=== PATIENT | male | born 1965 | race Caucasian/White ===

== ENCOUNTER 2020-12-14 13:50 | Emergency (ER) | payer SELFPAY ==
--- NOTE | ~2020-12-14 | CT_ITS ---
EXAMINATION: CTA chest PE abdomen pel EXAM DATE: 12/14/2020 16:16 INDICATION: Leg pain. Shortness of breath. Pulmonary embolism. TECHNIQUE: Spiral CTA of the chest (pulmonary arteries) was performed with 100 cc Omnipaque 350 intr avenous contrast injection. Images were acquired during the pulmonary arterial phase. Coronal maxi mum intensity projection 3D-reconstructions were created by the technologist on dedicated workstation . Axial, coronal and sagittal reformatted images were reviewed. Spiral CT of the abdomen and pelvis was then performed with the same intravenous contrast injection. Axial, coronal and sagittal reform atted images were reviewed. The dose-length product (DLP) for this examination was 577.18 mGy-cm. T he exposure was tailored according to patient size (auto mA exposure control), and iterative reconst ruction (ASIR) was used as additional dose reduction technique. There is no prior study for comparis on. FINDINGS: CHEST: Several right lower lobe segmental pulmonary emboli, low clot burden. No evidence of right hea rt strain. There is ill-defined left hilar malignancy extending into the lingula and left upper lobe, primary lung cancer. Difficult to measure this but up to about 7 cm, and with multiple severely enla rged left hilar, mediastinal and subcarinal metastatic nodes causing mild narrowing of the left main pulmonary artery. There is mass effect compressing the left upper lobe superior segmental bronchus. M ild right hilar lymphadenopathy. There is mild to moderate emphysema. No thoracic aortic dissection. There are no pleural or pericardial effusions. Tracheobronchial tree is patent. There is no pne umothorax. Heart normal in size. No evidence of coronary arterial calcification. ABDOMEN PELVIS: Liver and right renal cysts. Low-density right adrenal gland 2.3 cm lesion likely ad enoma. Gallbladder calcification probably cholelithiasis although nondependent. Portal and splenic veins are patent. Kidneys enhance symmetrically. There is no hydronephrosis. Mild prostatomegaly. Some diffuse bladder wall thickening, could indicate chronic cystitis. Acute cystitis not excludabl e. There is no retroperitoneal or pelvic lymphadenopathy. There are no findings to suggest appendicitis. The stomach and small bowel are unremarkable. There is expected amount of colonic stool. No free intraperitoneal gas. Ill-defined osteolytic lesion i n the right iliac crest measuring about 2 cm with some cortical destruction anteriorly, metastatic di sease. Additional low density 1.5 cm region in the left pubic symphysis without cortical destruction. Suspect early osteolytic disease of the right hip. Probable [id number] right 7th rib osteolytic lesion anterolaterally. Sclerotic 7 mm focus in T9, probably bone island. IMPRESSION: 1. Several right lower lobe segmental pulmonary emboli, low clot burden. 2. Infiltrative left hilar malignancy with extensive left hilar, mediastinal lymphadenopathy. Mild r ight hilar lymphadenopathy. 3. 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 I discussed left hilar malignancy, metastatic disease, pulmonary emboli with SAHRA Clinton t 12/14/2020 16:43 CDT. Reviewed, dictated and finalized at location B. IMPRESSION: 1. Several right lower lobe segmental pulmonary emboli, low clot burden. 2. Infiltrative left hilar malignancy with extensive left hilar, mediastinal l ymphadenopathy. Mild right hilar lymphadenopathy. 3. 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 I discussed left hilar malignancy, metastatic disease, pulmonary emboli with Rola Muir PA-C at 12/14/2020 16:43 CDT.
--- NOTE | ~2020-12-14 | US_ITS ---
EXAMINATION: US venous doppler [facility] DATE: 12/14/2020 14:49 INDICATION: Bilateral lower limb pain TECHNIQUE: Grayscale ultrasound images without and with compression and Doppler ultrasound images of the bilateral lower extremity veins were obtained. COMPARISON: None. FINDINGS: Noncompressible deep venous thrombosis in the right gastrocnemius and soleus veins and superficial ve nous thrombosis in the right lesser saphenous vein. The visualized portions of right common femoral v ein, profunda (deep) femoral vein, femoral vein, popliteal vein, posterior tibial veins, peroneal vei ns and greater saphenous vein outflow are patent. Noncompressible deep venous thrombosis in the left gastrocnemius and soleus veins. The visualized por tions of left common femoral vein, profunda femoral vein, femoral vein, popliteal vein, posterior tib ial veins, peroneal veins and greater saphenous vein outflow are patent. IMPRESSION: 1. Bilateral [id number] deep venous thrombosis at both the left and right gastrocnemius and sole us veins and superficial venous thrombosis at the right lesser saphenous vein. Reviewed, dictated and finalized at location A. IMPRESSION: 1. Bilateral [id number] deep venous thrombosis at both the left and right gastrocnemius and soleus veins and superficial venous thrombosis at the right l savita saphenous vein.
[2020-12-14 14:00] VITALS: BP 118/80; PULSE 98; RESP 20; TEMP 36.7; O2SAT 99
[2020-12-14 14:51] VITALS: BP 118/80; PULSE 98; RESP 18; TEMP 36.7; O2SAT 99
[2020-12-14 15:40] LABS: INR 1.2; Prothrombin Time 15.5 Seconds (11.1-14.7)
[2020-12-14 15:41] LABS: Partial Thromboplastin Time 31.6 SECONDS (22.3-36.8)
--- NOTE | 2020-12-14 16:04 | PC.NURSE ---
Returned from radiology and immediately walks outside. Pt went outside to get warm, refuses warm blanket when offered.
[2020-12-14 16:48] VITALS: BP 119/73; PULSE 65; RESP 16; O2SAT 99
--- NOTE | 2020-12-14 16:58 | ED.GENADULT ---
HPI - General Adult General Chief complaint: Extremity Problem,Nontraumatic Stated complaint: Leg pain Time Seen by Provider: 12/14/20 14:40 Source: patient and RN notes reviewed Mode of arrival: ambulatory Limitations: no limitations History of Present Illness HPI narrative: Patient is a 55-year-old male who presents with pain in the bilateral calves that has been going on now for the last week patient notes aching pain worse with activity and palpation patient also notes that he in the last months has lost up to 30 pounds of weight patient denies any chest pain shortness of breath lightheadedness dizziness patient has no primary care doctor nor is he ever seen a primary care doctor patient has been a smoker most of his life patient takes no medications and on arrival does not appear distressed patient lives at home with family Related Data Home Medications Medication Instructions Recorded Confirmed No Home Medications 12/14/20 12/14/20 Allergies Allergy/AdvReac Type Severity Reaction Status Date / Time No Known Allergies Allergy Verified 12/14/20 14:57 Review of Systems Review of Systems: All systems reviewed & are unremarkable except as noted in HPI and below PMFSH Social History Social History (Updated 12/14/20 @ 17:00 by Jeremy Muir PA-C) Smoking status: Current every day smoker Exam Narrative: Exam Narrative: GENERAL: Well-appearing, well-nourished, and in no acute distress. HEAD: Normocephalic, atraumatic. EYES: PERRLA and EOMI. ENT: Nares clear, no rhinorrhea or epistaxis. Mucous membranes moist. CHEST: Clear to auscultation. No respiratory distress. No wheezes rales or rhonchi HEART: Regular rate and rhythm. No murmur heard. Normal peripheral pulses. ABDOMEN: Soft, nontender, nondistended EXTREMITIES: Normal range of motion. No edema. Tenderness of the bilateral calves no swelling or deformity SKIN: Warm, dry, no rash. NEURO: No focal deficits. Alert and oriented x3. Cranial nerves II through XII grossly intact. Neurovascularly intact. Capillary refill less than 2 seconds PSYCH: Normal mood and affect. Course Course Emergency Course: Patient was evaluated in the emergency department for bilateral calf pain found to have bilateral DVTs patient also found to have left-sided lung cancer and pulmonary embolism patient was advised to come into the hospital but notes that he will follow up on [place] with the provided oncology referral he is aware of the discussion with oncology patient was given anticoagulation in the emergency department will be sent home with anticoagulation. Patient agrees with this treatment plan ABCs and vital signs intact and stable. Patient will sign out AMA. Reevaluation(s) Reevaluation #1: Patient was made aware of case findings treatment plan and diagnosis advised to stay in hospital given the pulmonary embolus blood clots and need for further evaluation of his new cancer finding patient notes that he is not going to stay in the hospital that he will go home and spend Father's Day with his family patient is aware of the risks associated with this and notes that he will sign out AMA patient notes that he will follow up with oncology and the provided primary care referrals on Friday Date: 12/14/20 Consultations Consultation #1: Discussed case with the oncologist Dr. Stewart recommended that the patient be admitted however he is aware that the patient is refusing to stay in the hospital and recommends that he be anticoagulated with either Eliquis or Xarelto and follow-up in clinic Date: 12/14/20 Time: 17:06 Vital Signs Vital signs: Vital Signs Temperature 98.1 F 12/14/20 14:51 Pulse Rate 98 12/14/20 14:51 Respiratory Rate 18 12/14/20 14:51 Blood Pressure 118/80 12/14/20 14:51 Pulse Oximetry 99 12/14/20 14:51 Temperature 98.1 F 12/14/20 14:51 Pulse Rate 65 12/14/20 16:48 Respiratory Rate 16 12/14/20 16:48 Blood Pressure 119/73 12/14/20 16:4
[2020-12-14] MEDS: APIXABAN 5 MG TABLET 10 MG PO (17:31)
== END 2020-12-14 17:34 | disposition left against medical advice (07) ==
PROVIDERS: Emergency Medicine Emergency Medical Services; Emergency Provider Emergency Medicine
DX: I26.99 Other pulmonary embolism without acute cor pulmonale (principal); I82.409 Acute embolism and thrombosis of unspecified deep veins of unspecified lower extremity; C34.92 Malignant neoplasm of unspecified part of left bronchus or lung; C79.51 Secondary malignant neoplasm of bone; F17.200 Nicotine dependence, unspecified, uncomplicated
CPT/HCPCS: 36415; 71275; 74177; 80048; 82550; 85025; 85610; 85730; 93970; 99284; A9270; Q9967

== ENCOUNTER 2021-01-15 09:49 | Emergency (ER) | payer MEDICAID, SELFPAY ==
--- NOTE | ~2021-01-15 | CT_ITS ---
EXAMINATION: CT brain wo con INDICATION: Altered mental status COMPARISON: None TECHNIQUE: Standard unenhanced head CT. The dose-length product (DLP) was 605.33 mGy-cm. The mA was a djusted according to patient size. Iterative reconstruction technique was employed. FINDINGS: There is a 4 mm mass in the left frontal lobe with surrounding vasogenic edema. There is an area of edema right frontal lobe without definite mass visualized. There are old infarcts of the rig ht cerebellum. The ventricles are normal. There is no abnormal mass effect or midline shift. The basa l cisterns are patent. The orbits are normal. There is mild mucosal thickening of the paranasal sinus es. IMPRESSION: 1. 4 mm mass in the left frontal lobe with surrounding vasogenic edema consistent with metastatic dis ease. Low-attenuation in the right frontal lobe without discrete mass identified could reflect occult metastasis. 2. 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 These findings were discussed with Dr. Sabas Foy MD in the Emergency Department at [email or web address] on 01/15/2021. Reviewed, dictated and finalized at location B. IMPRESSION: 1. 4 mm mass in the left frontal lobe with surrounding vasogenic edema consiste nt with metastatic disease. Low-attenuation in the right frontal lobe without d iscrete mass identified could reflect occult metastasis. 2. 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 These findings were discussed with Dr. Sabas Foy MD in the Emergency Department at 1053 hours on 01/15/2021.
--- NOTE | ~2021-01-15 | XR_ITS ---
EXAMINATION: XR chest 1V INDICATION: Altered mental status TECHNIQUE: AP view of the chest is obtained. COMPARISON: CT, 12/14/2020 FINDINGS: Again seen are left perihilar, mid lung zone and paramediastinal opacities, consistent with malignancy. No new opacities are identified. The heart size is normal. The visualized osseous struct ures are unremarkable. IMPRESSION: 1. Stable left perihilar and left upper lobe opacities, consistent with malignancy. No significant in terval change. Reviewed, dictated and finalized at location B. IMPRESSION: 1. Stable left perihilar and left upper lobe opacities, consistent with maligna ncy. No significant interval change.
--- NOTE | 2021-01-15 09:48 | ED.AMS ---
HPI - Altered Mental Status General Chief Complaint: Altered Mental Status Stated Complaint: AMS History of Present Illness HPI narrative: 55 yo male brought in by EMS from home for altered mental status. He reportedly had a recent diagnosis of cancer, possibly lung. Not currently on treatment. Found wandering in the yard this morning confused and dressed inappropriately for the weather. A&O x0 per EMS. He is apparently of normal mental status at baseline and this is new since this morning. History is severely limited by mental status. On further investigation he recently had imaging concerning for primary lung cancer. He has had one visit with oncology. There has not been any confirmatory biopsy or treatment. He does not have any other known history. Related Data Home Medications Medication Instructions Recorded Confirmed hydrocodone-acetaminophen 01/15/21 01/15/21 Allergies Allergy/AdvReac Type Severity Reaction Status Date / Time No Known Allergies Allergy Verified 01/15/21 10:30 Review of Systems Review of Systems: ROS unobtainable: Yes unobtainable due to mental status PMFSH Social History Social History Smoking status: Current every day smoker Gender identity (if verbalized by the patient): Male Exam Const: General: ill appearing Nutritional Appearance: thin Other: Alert .Oriented x0 HENMT: Head: normal to inspection, no contusions and no lacerations Ears: external ears abnormal Face and sinus: normal facial exam Mouth: Yes dry mucous membranes Eyes: Pupils: Equal, round and reactive pupils present EOM: EOMs intact bilaterally Neck: Neck: normal visual inspection Resp: Effort & Inspection: normal respiratory effort Auscultation: clear to auscultation bilaterally Cardio: Rate: regular rate Rhythm: regular rhythm GI: GI Palp: Yes Soft to palpation and No Tenderness to palpation present (GI) Skin: General skin exam: normal color Wounds: no wounds Neuro: General: moves all extremities, no focal motor deficits and CN's II-XI intact bilaterally Speech: normal speech Extrem: General: normal to inspection Course Vital Signs Vital signs: Vital Signs Temperature 37.0 C 01/15/21 09:49 Pulse Rate 90 01/15/21 09:49 Respiratory Rate 18 01/15/21 09:49 Blood Pressure 115/76 01/15/21 09:49 Pulse Oximetry 98 01/15/21 09:49 Temperature 37.0 C 01/15/21 09:49 Pulse Rate 57 L 01/15/21 12:52 Respiratory Rate 18 01/15/21 12:52 Blood Pressure 120/55 L 01/15/21 12:52 Pulse Oximetry 97 01/15/21 12:52 MDM - Altered Mental Status MDM Narrative Medical decision making narrative: Case discussed with Dr. Stewart. He has not seen the pateint personally. He recommends transfer to a center capable of inpatient radiation therapy. Dr[facility] Sandhu at [facility] will accept the patient for transfer. Given the bed situation and need for prompt transfer he would like him transferred to the ED. Differential Diagnosis Differential diagnosis: Likely delirium, hypoglycemia, subarachnoid hemorrhage, sepsis and other (CVA, brain mass) Medical Records Attestation: I reviewed the patient's medical records. Lab Data Attestation: I reviewed the patient's lab results. Result diagrams: 01/15/21 10:16 01/15/21 10:16 Labs: Lab Results 01/15/21 01/15/21 01/15/21 Range/Units 10:16 10:16 10:16 WBC 7.0 (4.5-10.0) K/mm3 RBC 3.50 L (4.6-6.20) M/mm3 Hgb 9.8 L (14.0-18.0) g/dL Hct 31.1 L (42.0-52.0) % MCV 88.9 (80-100) fl MCH 28.0 (26-34) pg MCHC 31.5 L (32-36) g/dl RDW 13.0 (11.5-14.5) % Plt Count 212 (150-375) k/mm3 MPV 8.8 (7.4-10.4) fl Immature Gran % (Auto) 0.3 (0-0.5) % Neut % (Auto) 79.9 H (45.5-73.1) % Lymph % (Auto) 10.6 L (18.3-44.2) % [place] % (Auto) 8.5 (2.6-8.5) % Eos % (Auto) 0.4 (0-4.4) % Baso % (Auto) 0.3 (0.2-1.2) % Lymp
[2021-01-15 09:49] VITALS: BP 115/76; PULSE 90; RESP 18; TEMP 37; O2SAT 98
--- NOTE | 2021-01-15 10:00 | ECG_ITS ---
Measurements Intervals [place] Rate: 89 P: 68 [place]: 130 QRS: 16 QRSD: 104 T: 46 QT: 352 QTc: 428 Interpretive Statements SINUS RHYTHM ST ELEVATION IN ANTEROLATERAL LEADS- PROBABLY EARLY REPOLARIZATION ABNORMALITY BASELINE ARTIFACT- II, III, AVF, V1, V4-V6 BORDERLINE ECG Electronically Signed On 01-15-2021 11:39:46 CDT by Richard Jorge D.O.
[2021-01-15 10:23] LABS: Alveolar/Arterial O2 Gradient 24.6 mmHg; Device ROOM AIR; Fractional Inspired Oxygen 21 %; HCO3 ABG 29.1 mEq/l (22.0-26.0); Modified Allen's Test Pass; Oxygen Content ABG 14.5 %vol (16.0-22.0); Oxygen Saturation ABG 95.9 % (95.0-100.0); Oxyhemoglobin 93.4 % THb (90.0-100.0); PCO2 ABG 41.3 mmHg (35.0-45.0); PO2 ABG 75.7 mmHg (80.0-100.0); Site Drawn RIGHT RADIAL; pH ABG 7.466 (7.350-7.450)
[2021-01-15] MEDS: SODIUM CHLORIDE 0.9% IV 1,000 ML 999 ML IV CONT (10:28)
[2021-01-15 10:29] LABS: Basophils Percent Auto 0.3 % (0.2-1.2); Eosinophils Percent Auto 0.4 % (0-4.4); Hematocrit 31.1 % (42.0-52.0); Hemoglobin 9.8 g/dL (14.0-18.0); Immature Granulocyte Absolute 0.02 K/mm3 (0.00-0.031); Immature Granulocyte Percent A 0.3 % (0-0.5); Lymphocytes Absolute Auto 0.74 K/mm3 (0.9-3.2); Lymphocytes Percent Auto 10.6 % (18.3-44.2); Mean Corpuscular HGB Conc 31.5 g/dl (32-36); Mean Corpuscular Volume 88.9 fl (80-100); Mean Platelet Volume 8.8 fl (7.4-10.4); Monocytes Absolute Auto 0.6 K/mm3 (0.1-0.6); Monocytes Percent Auto 8.5 % (2.6-8.5); Neutrophils Absolute Auto 5.6 K/mm3 (1.3-6.7); Neutrophils Percent Auto 79.9 % (45.5-73.1); Platelet Count Result 212 k/mm3 (150-375)
[2021-01-15 10:39] LABS: INR 1.4; Prothrombin Time 16.6 Seconds (11.1-14.7)
[2021-01-15 10:40] LABS: Alanine Aminotransferase 21 U/L (4-50); Albumin Level 3.6 g/dL (3.5-5.1); Alkaline Phosphatase 92 U/L (38-126); Anion Gap 7 mmol/L (8-16); Aspartate Amino Transferase 46 U/L (17-59); Bilirubin,Total 0.5 mg/dL (0.2-1.3); Blood Urea Nitrogen 8 mg/dL (9-20); Calcium 9.9 mg/dL (8.4-10.2); Carbon Dioxide 31 mmol/L (22-30); Chloride 97 mmol/L (98-107); Estimated CRCL calculation 90 ml/min; Estimated Glomerular Filt Rate > 60; Glucose 112 mg/dL (65-110); Potassium 4.2 mmol/L (3.4-5.0); Sodium 135 mmol/L (137-145)
[2021-01-15] MEDS: DEXAMETHASONE SOD PHOS INJ 4 MG/ML VIAL 10 MG IV PUSH (11:27)
[2021-01-15 11:35] VITALS: BP 110/68; PULSE 82; RESP 18; O2SAT 94
[2021-01-15 11:40] LABS: Glucose Point of Care 95 mg/dl (65-105)
[2021-01-15 11:51] LABS: Add Urine Microscopic? YES; Appearance Urine Clear (Clear); Bilirubin Urine Negative (Negative); Blood Urine Negative (Negative); Color Urine Yellow (Yellow); Glucose Urine UA Negative (Negative); Ketones Urine Negative (Negative); Leukocyte Esterase Ur Negative LEU/UL (Negative); Mucus Urine Rare /lpf; Nitrate Urine Negative (Negative); Protein Urine 1+ mg/dL (Negative); Specific Grav Ur 1.017 (1.001-1.035); Squamous Epithelial Cell Urine Rare /hpf (Few); WBC Urine 0-3 /hpf
[2021-01-15 12:00] VITALS: BP 214/126; PULSE 96; RESP 21; O2SAT 99
[2021-01-15 12:52] VITALS: BP 120/55; PULSE 57; RESP 18; O2SAT 97
--- NOTE | 2021-01-15 13:04 | PC.NURSE ---
made contact with [facility] and [facility] to transfer pt to [facility]. both companies declined. made contact with [facility]. they accepted with an eta of [id number]
[2021-01-15 14:35] VITALS: BP 100/65; PULSE 80; RESP 22; O2SAT 18
--- NOTE | 2021-01-15 14:50 | PC.NURSE ---
made contact with [employer] for a new eta [phone]
--- NOTE | 2021-01-15 15:14 | PC.NURSE ---
luis m has arrived and is aware that pt is going to [facility]
[2021-01-15 15:21] VITALS: BP 114/76; PULSE 76; RESP 18; O2SAT 100
== END 2021-01-15 15:23 | disposition short-term general hospital (02) ==
PROVIDERS: Emergency Provider Emergency Medicine
DX: G93.40 Encephalopathy, unspecified (principal); G93.9 Disorder of brain, unspecified; F17.200 Nicotine dependence, unspecified, uncomplicated; Z79.891 Long term (current) use of opiate analgesic
CPT/HCPCS: 36415; 36600; 70450; 71045; 80053; 81001; 82805; 82948; 83605; 85025; 85610; 85730; 93005; 96361; 96374; 99285; J1100; J7030